=== PATIENT | male | born 1970 | race African-American/Black ===

== ENCOUNTER 2017-05-12 15:28 | Emergency (ER) | payer BC ==
--- NOTE | ~2017-05-12 | EKG ---
PATIENT: JORGE MEAD UNIT #: [id number] Ventricular Rate: 93 BPM Atrial Rate: 93 BPM P-R Interval: 144 ms QRS Duration: 80 ms Q-T Interval: 372 ms QTC Calculation(Bezet): 462 ms P [place]: 27 degrees Calculated R [place]: 6 degrees Calculated T [place]: -161 degrees Diagnosis Line: Normal sinus rhythm Diagnosis Line: Left ventricular hypertrophy with repolarization Diagnosis Line: abnormality Diagnosis Line: Abnormal ECG Diagnosis Line: When compared with ECG of 28-JUL-2011 00:27, Diagnosis Line: Vent. rate has increased BY 32 BPM Diagnosis Line: Confirmed by ISACC SIMS MD ([id number]) on Diagnosis Line: 05/13/2017 10:05:53 AM INTERPRETING SUNIL WARREN
--- NOTE | ~2017-05-12 | CR72 ---
[facility] A Service of [facility] & [facility] RADIOLOGY TEXT RESULTS PATIENT: JORGE MEAD LOCATION: [facility] : 66 UNIT #: [id number] AGE: [address]: Cameron Rodriguez MD SEX: M ORDER DR: [id number] [facility] [address] [place], [place] [address] [id number] E MR#: [id number] Acc #: [id number] NAME: JORGE MEAD : 1970 SEX: M STUDY DATE/TIME: 05/12/2017 17:24 UNIT: [facility] ROOM: STUDY DESCRIPTION: CR Chest Single View Portable Attending Physician: Cameron Rodriguez M.D. Ordering Physician: Cameron Rodriguez M.D. Primary Care Physician: Ninfa Grady M.D. MEDICAL IMAGING REPORT This report is preliminary unless electronic signature is present EXAM Portable chest x-ray 05/12/2017 HISTORY Fever, chills, body aches, duration 1 day. COMPARISON 05/25/2011. FINDINGS The cardiac pacemaker is unchanged. Borderline cardiac enlargement unchanged. Lung volumes moderate. No clearly acute pulmonary disease is seen. No pleural effusion or pneumothorax. No suspicious nodule. Stable calcified granuloma right upper lung zone. Dictated by... Wilder Cheney M.D. THIS IS AN ELECTRONICALLY VERIFIED REPORT Wilder Cheney M.D. at 05/13/2017 10:48 PM BRYAN/valorie TD: 05/13/2017 05:42 JOB #: [id number] MEDICAL IMAGING REPORT Page 1 of 1 COPY
[~2017-05-12 15:28] MED LIST: CATAPRES-TTS-20.2 MG PO; DICLOFENAC SODI50 MG PO; DIOVAN PO; ELIMITE60 GM TOP; FLEXERIL PO; HCTZ PO; KCL PO; LISINOPRIL-HCTZ1 T14 PO; LOPRESSOR PO; LORTAB 5/500 TA1 TA1 PO; METOPROLOL SUC100 MG PO; METOPROLOL TAR25 MG PO; OXISTAT; PRILOSEC PO
[2017-05-12 16:24] LABS: URINE SOURCE CLEAN CATCH
[2017-05-12 16:31] LABS: URINE APPEARANCE CLEAR; URINE BILIRUBIN NEG (NEG); URINE BLOOD 2+ (NEG); URINE COLOR YELLOW; URINE GLUCOSE NEG (NEG); URINE KETONE TRACE (NEG); URINE LEUKOCYTE ESTERASE 3+ (NEG); URINE NITRATE NEG (NEG); URINE PROTEIN NEG (NEG); URINE SPECIFIC GRAVITY 1.017 (1.003-1.035); URINE UROBILINOGEN 0.2 MG/DL (NEG)
[2017-05-12 16:34] LABS: CULTURE INDICATED? YES; URINE BACTERIA AUWI NEG (NEGATIVE); UWBCS1 AUWI 50-100 (0-5)
[2017-05-12 16:48] LABS: U HYALINE CASTS AUWI 0-2 /[LPF]; URINE MUCUS PRESENT
[2017-05-12 16:49] LABS: URINE SQUAMOUS EPITHELIAL CELL MODERATE /[HPF]
[2017-05-12 18:27] LABS: BASOPHIL# 0.3 X10e3 (0-0.3); BASOPHIL% 1.4 % (0-2.5); EOSINOPHIL# 0.1 X10e3 (0-0.7); EOSINOPHIL% 0.5 % (0.0-7.0); HEMATOCRIT 47.9 % (38.0-50.0); HEMOGLOBIN 15.5 gm/dL (13.0-16.0); LYMPHOCYTE# 2.1 X10e3 (1.0-3.5); LYMPHOCYTE% 10.2 % (17.0-45.0); MEAN CELL VOLUME 83.3 FL (83-96); MEAN CORPUSCULAR HEMOGLOBIN 26.9 PG (28-34); MEAN CORPUSCULAR HGB CONC 32.3 g/dL (30-36); MONOCYTE# 1.1 X10e3 (0-1.0); MONOCYTE% 5.6 % (3.0-12.0); NEUTROPHIL# 16.7 X10e3 (1.5-7.1); NEUTROPHIL% 82.3 % (40-75); PLATELET COUNT 173 X10e3 (140-420); RED BLOOD COUNT 5.75 X10e (3.90-5.60); RED CELL DISTRIBUTION WIDTH 14.1 % (11.0-15.5); WHITE BLOOD COUNT 20.3 X10e3 (4.0-10.5)
[2017-05-12 18:31] LABS: DIFF IND YES
[2017-05-12 18:49] LABS: ALBUMIN SERUM 4.2 g/dL (3.5-5.0); BILIRUBIN, DIRECT 0.2 mg/dL (0.0-0.2); BILIRUBIN,INDIRECT 0.8 mg/dL (0.0-0.9); CALCIUM SERUM 9.3 mg/dL (8.4-10.2); GLOM FILT RATE Estimated 102.7 mL/min (>60); POTASSIUM 3.4 mmol/L (3.5-5.1); PROTEIN TOTAL SERUM 7.8 g/dL (6.0-8.3)
[2017-05-12 18:51] LABS: HYPOCHROMIA SL; PLATELET ESTIMATE NORMAL (NORMAL)
== END 2017-05-12 19:25 | disposition home or self-care (01) ==
LOC: CED 15:28
PROVIDERS: Emergency Medicine
DX: N39.0 Urinary tract infection, site not specified (principal); K21.9 Gastro-esophageal reflux disease without esophagitis; I10 Essential (primary) hypertension; F17.210 Nicotine dependence, cigarettes, uncomplicated; Z88.8 Allergy status to other drugs, medicaments and biological substances
CPT/HCPCS: 71010; 80048; 80076; 81003; 85025; 87086; 87088; 87186; 93005; 99284